=== PATIENT | female | born 1945 | race Caucasian/White ===

== ENCOUNTER → 2020-03-24 09:07 | Outpatient (BNVA) | payer MEDICARE, SELFPAY | PROVIDERS: PCP Internal Medicine; Referring Provider Internal Medicine; Visit Provider Surgery Vascular Surgery | DX: I83.12 Varicose veins of left lower extremity with inflammation (principal) | CPT/HCPCS: 36482 ==

== ENCOUNTER 2020-03-28 12:30 | Outpatient (REF) | payer MEDICARE, SELFPAY ==
--- NOTE | 2020-03-28 | US_ITS ---
EXAMINATION: LOWER EXTREMITY VENOUS ULTRASOUND, LEFT CLINICAL INFORMATION: Leg pain and swelling status post VenaSeal procedure. COMPARISON: None. TECHNIQUE: Doppler spectral analysis and color flow Doppler imaging was performed of the lower extremity. Compression and augmentation maneuvers were performed. FINDINGS: The visualized left common femoral, femoral, popliteal veins demonstrate normal compressibility and color fill-in without evidence of venous thrombosis. Visualized portions of the mid calf veins demonstrate normal color fill-in suggesting patency. Echogenicity in the left greater saphenous vein approximately 3.4 cm away from the saphenofemoral junction, suggestive of sequela of previous VenaSeal procedure. ADDITIONAL FINDINGS: None. IMPRESSION: No evidence for left lower extremity deep vein thrombosis. Echogenicity in the left greater saphenous vein approximately 3.4 cm from the saphenofemoral junction, suggestive of sequela of VenaSeal procedure.
== END 2020-03-28 12:31 | disposition home or self-care (01) ==
LOC: HO.US 12:30
PROVIDERS: Visit Provider Surgery Vascular Surgery
DX: M79.605 Pain in left leg (principal)
CPT/HCPCS: 93971

== ENCOUNTER → 2020-04-04 14:20 | Outpatient (BNVA) | payer MEDICARE, SELFPAY | PROVIDERS: PCP Internal Medicine; Visit Provider Surgery Vascular Surgery | DX: Z48.812 Encounter for surgical aftercare following surgery on the circulatory system (principal) | CPT/HCPCS: 99213 ==

== ENCOUNTER → 2020-04-27 14:48 | Outpatient (BNVA) | payer MEDICARE, SELFPAY | PROVIDERS: PCP Internal Medicine; Visit Provider Surgery Vascular Surgery | DX: Z48.812 Encounter for surgical aftercare following surgery on the circulatory system (principal) | CPT/HCPCS: 99212 ==

== ENCOUNTER 2021-01-26 12:01 | Outpatient (REF) | payer MEDICARE, SELFPAY ==
--- NOTE | ~2021-01-26 | MM_ITS ---
EXAMINATION: MM SCREENING DIGITAL BREAST TOMOSYNTHESIS, BILATERAL CLINICAL INFORMATION: Screening. Asymptomatic. The lifetime risk of breast cancer based on the Tyrer-Cuzick Model is 5%. COMPARISON: Mammography: 01/21/2020, 09/08/2018, 09/01/2017 TECHNIQUE: Digital breast tomosynthesis is performed in both the craniocaudal and mediolateral oblique views along with computer-aided detection (CAD). Synthesized 2D images are generated from the tomosynthesis. FINDINGS: The breasts are heterogeneously dense, which may obscure small masses (ACR BI-RADS breast composition Category c). There are no significant masses, abnormal calcifications, or other abnormalities. There is no developing density. The axilla and skin contours are unremarkable. Loop recorder cardiac monitoring device again noted overlying the posterior medial left breast. There is a small dermal lesion overlying the superior medial right breast. MM/MM tomosynthesis screening BI IMPRESSION: No mammographic evidence of malignancy. ASSESSMENT: BI-RADS 2: Benign RECOMMENDATION: Routine annual mammography screening. This patient's information was entered into a reminder system with a target due date for their next mammogram.
== END 2021-01-26 12:02 | disposition home or self-care (01) ==
LOC: HO.MAMMO 12:01
PROVIDERS: PCP Internal Medicine; Visit Provider Internal Medicine
DX: Z12.31 Encounter for screening mammogram for malignant neoplasm of breast (principal)
CPT/HCPCS: 77063; 77067

== ENCOUNTER 2021-02-01 11:02 | Outpatient (REF) | payer MEDICARE, SELFPAY ==
[2021-02-01 14:50] LABS: Alanine Aminotransferase 27 U/L (0-31); Anion Gap 14 (12-20); Aspartate Amino Transferase 23 U/L (5-31); Blood Urea Nitrogen 15 mg/dL (9-16); Calcium 10.6 mg/dL (8.4-10.2); Carbon Dioxide 25 mmol/L (22-29); Chloride 109 mmol/L (96-108); Cholesterol 187 mg/dL; Estimated Glomerular Filt Rate > 60; Glucose Fasting 97 mg/dL (60-99); HDL Cholesterol 47 mg/dL; LDL Cholesterol Calculated 86 mg/dl; Potassium 4.1 mmol/L (3.3-5.1); Sodium 144 mmol/L (135-145); Triglycerides 274 mg/dL
[2021-02-01 14:58] LABS: Vitamin D 25-OH Total 45.8 ng/mL (>30)
== END 2021-02-01 11:03 | disposition home or self-care (01) ==
LOC: HO.HMGCLDS 11:02
PROVIDERS: PCP Internal Medicine; Visit Provider Internal Medicine
DX: R60.0 Localized edema (principal); E83.52 Hypercalcemia; I83.893 Varicose veins of bilateral lower extremities with other complications; E78.5 Hyperlipidemia, unspecified; Z78.0 Asymptomatic menopausal state; I10 Essential (primary) hypertension
CPT/HCPCS: 36415; 80048; 80061; 82306; 84450; 84460

== ENCOUNTER 2021-02-13 12:30 | Outpatient (REF) | payer MEDICARE, SELFPAY ==
[2021-02-15 13:16] LABS: Calcium, Ionized 5.8 mg/dL (4.8-5.6)
[2021-02-15 13:31] LABS: Calcium (PTHI) 10.9 mg/dL (8.6-10.4); PTHI 62 pg/mL (14-64)
== END 2021-02-13 12:31 | disposition home or self-care (01) ==
LOC: HO.HMGCLDS 12:30
PROVIDERS: PCP Internal Medicine; Visit Provider Internal Medicine
DX: E83.52 Hypercalcemia (principal)
CPT/HCPCS: 36415; 82330; 83970

== ENCOUNTER 2021-05-28 10:16 | Outpatient (REF) | payer MEDICARE, SELFPAY | END 2021-05-28 10:17 | disposition home or self-care (01) | LOC: HO.HMGCLDS 10:16 | PROVIDERS: PCP Internal Medicine; Visit Provider Internal Medicine | DX: Z13.89 Encounter for screening for other disorder (principal) ==

== ENCOUNTER 2021-07-26 08:50 | Outpatient (REF) | payer MEDICARE, SELFPAY ==
[2021-07-26 11:55] LABS: TSH reflex Free T4 0.69 uIU/mL (0.32-4.0); Vitamin D 25-OH Total 40.9 ng/mL (>30)
[2021-07-26 12:23] LABS: Alanine Aminotransferase 27 U/L (0-31); Anion Gap 11 (12-20); Aspartate Amino Transferase 21 U/L (5-31); Blood Urea Nitrogen 16 mg/dL (9-16); Calcium 10.6 mg/dL (8.4-10.2); Carbon Dioxide 28 mmol/L (22-29); Chloride 107 mmol/L (96-108); Cholesterol 207 mg/dL; Estimated Glomerular Filt Rate 56; Glucose Fasting 97 mg/dL (60-99); HDL Cholesterol 52 mg/dL; LDL Cholesterol Calculated 113 mg/dl; Sodium 142 mmol/L (135-145); Triglycerides 211 mg/dL
== END 2021-07-26 08:51 | disposition home or self-care (01) ==
LOC: HO.HMGCLDS 08:50
PROVIDERS: Visit Provider Internal Medicine
DX: F41.9 Anxiety disorder, unspecified (principal); K21.9 Gastro-esophageal reflux disease without esophagitis; I48.0 Paroxysmal atrial fibrillation; I10 Essential (primary) hypertension; E78.5 Hyperlipidemia, unspecified; Z78.0 Asymptomatic menopausal state
CPT/HCPCS: 36415; 80048; 80061; 82306; 84443; 84450; 84460

== ENCOUNTER 2022-02-19 09:41 | Outpatient (REF) | payer MEDICARE, SELFPAY ==
[2022-02-19 11:59] LABS: Alanine Aminotransferase 20 U/L (0-31); Anion Gap 14 (12-20); Aspartate Amino Transferase 15 U/L (5-31); Blood Urea Nitrogen 20 mg/dL (9-16); Calcium 10.2 mg/dL (8.4-10.2); Carbon Dioxide 25 mmol/L (22-29); Chloride 107 mmol/L (96-108); Cholesterol 199 mg/dL; Estimated Glomerular Filt Rate > 60; Glucose Fasting 98 mg/dL (60-99); HDL Cholesterol 46 mg/dL; LDL Cholesterol Calculated 105 mg/dl; Potassium 3.7 mmol/L (3.3-5.1); Sodium 142 mmol/L (135-145); Triglycerides 241 mg/dL
[2022-02-19 12:22] LABS: TSH reflex Free T4 0.57 uIU/mL (0.32-4.0); Vitamin D 25-OH Total 43.5 ng/mL (>30)
[2022-02-21 08:33] LABS: Calcium, Ionized 5.5 mg/dL (4.8-5.6)
[2022-02-26 21:11] LABS: Parathyroid Hormone Related Pr 12 pg/mL (11-20)
== END 2022-02-19 09:42 | disposition home or self-care (01) ==
LOC: HO.HMGCLDS 09:41
PROVIDERS: PCP Internal Medicine; Visit Provider Internal Medicine
DX: E21.3 Hyperparathyroidism, unspecified (principal); E04.2 Nontoxic multinodular goiter; E78.5 Hyperlipidemia, unspecified; I10 Essential (primary) hypertension; Z78.0 Asymptomatic menopausal state
CPT/HCPCS: 36415; 80048; 80061; 82306; 82330; 83519; 84443; 84450; 84460

== ENCOUNTER 2022-03-06 12:06 | Outpatient (REF) | payer MEDICARE, SELFPAY ==
--- NOTE | ~2022-03-06 | MM_ITS ---
EXAMINATION: MM SCREENING DIGITAL BREAST TOMOSYNTHESIS, BILATERAL CLINICAL INFORMATION: Screening. Asymptomatic. The lifetime risk of breast cancer based on the Tyrer-Cuzick Model is 5%. COMPARISON: Mammography: 01/26/2021, 01/21/2020, 09/08/2018 TECHNIQUE: Digital breast tomosynthesis is performed in both the craniocaudal and mediolateral oblique views along with computer-aided detection (CAD). Synthesized 2D images are generated from the tomosynthesis. Additional right MLO view is provided. FINDINGS: The breasts are heterogeneously dense, which may obscure small masses (ACR BI-RADS breast composition Category c). Parenchymal pattern is similar to prior studies. There is no developing density or architectural abnormality. Small dermal lesion is again seen overlying the superior medial right breast. A loop recorder cardiac monitoring device again noted overlying posterior medial left breast. No significant changes. The axilla are unremarkable. MM/MM tomosynthesis screening BI IMPRESSION: No mammographic evidence of malignancy. ASSESSMENT: BI-RADS 2: Benign RECOMMENDATION: Routine annual mammography screening. This patient's information was entered into a reminder system with a target due date for their next mammogram.
== END 2022-03-06 12:07 | disposition home or self-care (01) ==
LOC: HO.MAMMO 12:06
PROVIDERS: PCP Internal Medicine; Visit Provider Internal Medicine
DX: Z12.31 Encounter for screening mammogram for malignant neoplasm of breast (principal)
CPT/HCPCS: 77063; 77067

== ENCOUNTER 2022-03-12 12:46 | Outpatient (REF) | payer MEDICARE, SELFPAY ==
--- NOTE | ~2022-03-12 | US_ITS ---
EXAMINATION: US THYROID CLINICAL INFORMATION: Nontoxic multinodular goiter. COMPARISON: Ultrasound thyroid 02/06/2018. TECHNIQUE: Linear transducer grayscale and color Doppler examination with attention to the region of the thyroid. FINDINGS: SIZE: Measurements of the thyroid lobes and nodules are given in sagittal, anteroposterior and transverse dimensions respectively. Right Thyroid Lobe: 4.6 x 2.7 x 1.7 cm, volume 10.8 mL. Previously 4.8 x 2.5 x 1.8 cm, volume 11.3 mL. Parenchyma: The gland echotexture is heterogeneous. Thyroid vascularity is normal. Left Thyroid Lobe: 5.0 x 2.5 x 2.0 cm, volume 12.5 mL. Previously 5.0 x 2.2 x 1.7 cm, volume 9.8 mL. Parenchyma: The gland echotexture is heterogeneous. Thyroid vascularity is normal. Isthmus: 0.31 cm in maximum AP dimension. Previously 0.60 cm. Estimated total number of nodules greater than or equal to 1 cm: 3. Beet Worker nodules are described as follows: 1. Location: Right mid. Size: 0.61 x 0.38 x 0.55 cm, volume 0.07 mL. Previously: 0.61 x 0.50 x 0.58 cm, volume 0.09 mL. Nodule characteristics: Composition: Spongiform (0). Echogenicity: Anechoic (0). Shape: Not taller than wide (0). Margins: Smooth (0). Echogenic Foci: None (0). ACR TI-RADS total points: 0 ACR TI-RADS category: 1 Significant change in size (>/= 20% in 2 dimensions and minimal increase of 2 mm or 50% or greater increase in volume): No Change in features: No Change in ACR TI-RADS risk category: No 2. Location: Right mid. Size: 2.9 x 2.3 x 2.5 cm, volume 8.4 mL. Previously: 2.7 x 2.2 x 1.9 cm, volume 5.9 mL. Nodule characteristics: Composition: Mixed cystic and solid (1). Echogenicity: Hypoechoic (2). Shape: Not taller than wide (0). Margins: Smooth (0). Echogenic Foci: Punctate echogenic foci (3). ACR TI-RADS total points: 6 ACR TI-RADS category: 4 Significant change in size (>/= 20% in 2 dimensions and minimal increase of 2 mm or 50% or greater increase in volume): No Change in features: No Change in ACR TI-RADS risk category: No 3. Location: Left superior. Size: 1.2 x 0.92 x 1.4 cm, volume 0.82 mL. Previously: 1.0 x 0.75 x 0.85 cm, volume 0.33 mL. Nodule characteristics: Composition: Mixed cystic and solid (1). Echogenicity: Cannot be determined (1). Shape: Not taller than wide (0). Margins: Smooth (0). Echogenic Foci: None (0). ACR TI-RADS total points: 2 ACR TI-RADS category: 2 Significant change in size (>/= 20% in 2 dimensions and minimal increase of 2 mm or 50% or greater increase in volume): Yes Change in features: No Change in ACR TI-RADS risk category: No 4. Location: Left inferior. Size: 2.4 x 2.6 x 2.1 cm, volume 6.9 mL. Previously: 3.3 x 1.9 x 1.8 cm, volume 5.9 mL. Nodule characteristics: Composition: Mixed cystic and solid (1). Echogenicity: Isoechoic (1). Shape: Taller than wide (3). Margins: Smooth (0). Echogenic Foci: None (0). ACR TI-RADS total points: 5 ACR TI-RADS category: 4 Significant change in size (>/= 20% in 2 dimensions and minimal increase of 2 mm or 50% or greater increase in volume): No Change in features: No Change in ACR TI-RADS risk category: No NODES: No lymphadenopathy is seen in the tissue surrounding the thyroid gland. US/US thyroid IMPRESSION: Multinodular thyroid. The most part these nodules are without significant change. If not previously performed, nodules #2 and #4 are appropriate for fine-needle aspiration. ACR TI-RADS RECOMMENDATION REFERENCE: Ultrasound-guided fine-needle aspiration, followup ultrasound, no further follow up. * TR1 (0 point) and TR 2 (2 points): No FNA or follow up. * TR3 (3 points): FNA if more than or equal to 2.5 cm in maximum dimension, followup ultrasound in 1, 3 and 5 years if 1.5 to 2.4 cm in maximum dimension. * TR4 (4-6 points): FNA if more than or equal to 1.5 cm in maximum dimension, followup ultrasound in 1, 2, 3 and 5 years if 1 to 1.4 cm in maximum dimension. * TR5 (more than or equal to 7 points): FNA if more than or equal to 1 cm in maximum dimension, followup ultrasound every year for 5 years if 0.5 to 0.9 cm in maximum dimension. * TR3, TR4 or TR5 nodules that are below the size threshold for followup receive no follow up.
== END 2022-03-12 12:47 | disposition home or self-care (01) ==
LOC: HO.HMGCX 12:46
PROVIDERS: PCP Internal Medicine; Visit Provider Internal Medicine
DX: E04.2 Nontoxic multinodular goiter (principal)
CPT/HCPCS: 76536

== ENCOUNTER 2022-05-24 10:35 | Outpatient (REF) | payer MEDICARE, SELFPAY ==
[2022-05-24 16:21] LABS: Anion Gap 12 (12-20); Blood Urea Nitrogen 21 mg/dL (9-16); Calcium 10.5 mg/dL (8.4-10.2); Carbon Dioxide 25 mmol/L (22-29); Chloride 108 mmol/L (96-108); Estimated Glomerular Filt Rate > 60; Glucose Random 111 mg/dL (60-115); Potassium 3.9 mmol/L (3.3-5.1); Sodium 141 mmol/L (135-145)
== END 2022-05-24 10:36 | disposition home or self-care (01) ==
LOC: HO.HMGCLDS 10:35
PROVIDERS: PCP Internal Medicine; Visit Provider Physician Assistant Medical
DX: I10 Essential (primary) hypertension (principal)
CPT/HCPCS: 36415; 80048

== ENCOUNTER 2022-06-24 10:58 | Outpatient (REF) | payer MEDICARE, SELFPAY ==
[2022-06-24 14:20] LABS: Cholesterol 209 mg/dL; HDL Cholesterol 49 mg/dL; LDL Cholesterol Calculated 108 mg/dl; Triglycerides 260 mg/dL
== END 2022-06-24 10:59 | disposition home or self-care (01) ==
LOC: HO.HMGCLDS 10:58
PROVIDERS: PCP Internal Medicine; Visit Provider Internal Medicine
DX: E78.5 Hyperlipidemia, unspecified (principal); I10 Essential (primary) hypertension
CPT/HCPCS: 36415; 80061

== ENCOUNTER 2022-10-24 10:36 | Outpatient (REF) | payer MEDICARE, SELFPAY ==
--- NOTE | ~2022-10-24 | MM_ITS ---
EXAMINATION: BONE DENSITOMETRY CLINICAL INDICATION: Hyperparathyroidism, unspecified. COMPARISON: Previous BD dated 01/21/2020 and baseline BD dated 05/02/2005, spine and left hip. TECHNIQUE: Using a [employer] DXA System (software version: 13.1) manufactured by [employer], dual-energy x-ray absorptiometry was performed of the lumbar spine, left hip and left forearm radius 33%. The images are of good technical quality. Summary results are attached. FINDINGS: AP SPINE L1-L4: Current: BMD 1.263 g/cm2, Z-score 1.9, T-score 0.7, normal, 1.3% increase from previous, 4.6% increase from baseline (<5% change is not significant). Prior: BMD 1.247 g/cm2. Baseline: BMD 1.208 g/cm2. LEFT FEMUR, NECK: Current: BMD 0.818 g/cm2, Z-score 0.1, T-score -1.6, osteopenia. Prior: BMD 0.787 g/cm2. Baseline: BMD 0.905 g/cm2. LEFT FEMUR, TOTAL: Current: BMD 0.909 g/cm2, Z-score 0.7, T-score -0.8, normal, 1.7% increase from previous, 10.1% decrease from baseline (<5% change is not significant). Prior: BMD 0.894 g/cm2. Baseline: BMD 1.011 g/cm2. LEFT FOREARM RADIUS 33%: BMD 0.890 g/cm2, Z-score 2.7, T-score 0.2, normal. IDENTIFIED RISK FACTORS: Height loss, history of fracture (adult), hyperparathyroidism, low calcium intake, menopause, recurrent falls. HISTORY OF FRACTURE: Spine. MEDICATIONS: Calcium supplements or multivitamin, vitamin D. MM/XR DEXA appendicular skeleton IMPRESSION: 1. DIAGNOSIS: Osteopenia based on the lowest T-score value of -1.6 in the femoral neck applying World Health Organization criteria. 2. 10-YEAR FRACTURE RISK PREDICTION, FRAX: Major osteoporotic fracture (clinical spine, forearm, hip or shoulder) 18.0%. Hip fracture 3.7%. 3. Treatment Recommendations: NOF guidelines recommend consideration for treatment in postmenopausal women and men age 50 and older presenting with the following: -A hip or vertebral (clinical or morphometric) fracture. -T-score less than or equal to -2.5 at the femoral neck or spine after appropriate evaluation to exclude secondary causes. -Low bone mass at the hip or spine and a 10-year fracture probability by FRAX of greater than or equal to 3% for hip fracture or greater than or equal to 20% for major osteoporotic fracture based on the [place] adapted WHO algorithm. 4. Other Recommendations: All treatment decisions require clinical judgment and consideration of individual patient factors, including patient preferences, comorbidities, previous drug use, risk factors not captured in the FRAX model (e.g. frailty, falls, vitamin D deficiency, increased bone turnover, interval significant decline in bone density) and possible under or overestimation of fracture risk by FRAX. Additional medical evaluation for secondary cause of low bone mineral density may be appropriate. FUTURE SCAN RECOMMENDATION: People with diagnosed cases of osteoporosis or at high risk for fracture should have regular bone mineral density tests. For patients eligible for Medicare, routine testing is allowed once every 2 years. The testing frequency can be increased to one year for patients who have rapidly progressing disease, those who are receiving or discontinuing medical therapy to restore bone mass, or have additional risk factors.
== END 2022-10-24 10:37 | disposition home or self-care (01) ==
LOC: HO.MAMMO 10:36
PROVIDERS: Visit Provider Internal Medicine
DX: Z13.820 Encounter for screening for osteoporosis (principal); Z78.0 Asymptomatic menopausal state; E21.3 Hyperparathyroidism, unspecified
CPT/HCPCS: 77081

== ENCOUNTER 2022-11-06 11:19 | Outpatient (AMB) | payer MEDICARE, SELFPAY ==
--- NOTE | 2022-11-06 11:50 | A.OFFPC_ITS ---
Vital Signs 11/06/22 11:57 Height 5 ft 1 in Weight 192 lb BMI 36.3 BP 134/76 Blood Pressure Location Rt brachial Position Sitting Pulse 52 Pulse Source Pulse Oximeter Pulse Oximetry (%) 94 Oxygen Delivery Method Room Air Intake Visit Reasons: Med review /4 month follow up Intake Note: Pt is here today for her 4 months f/u Allergies No Known Allergies Allergy (Mild, Verified 11/06/22 12:05) N/A Medication List - Last Reconciled 11/06/22 by Tabitha Escobar MD acetaminophen (Tylenol) 325 mg PO QID PRN cholecalciferol (vitamin D3) 25 mcg PO DAILY diphenhydramine HCl (Allergy (diphenhydramine)) 25 mg PO BEDTIME hydrochlorothiazide 12.5 mg PO QAM losartan 50 mg PO DAILY multivitamin (Daily Multi-Vitamin tablet) 1 tab PO DAILY rosuvastatin 10 mg PO DAILY sotalol 160 mg PO BID Tobacco use date assessed: 11/06/22 Fall risk assessment: No Falls in past year Last assessed Fall Risk: 11/06/22 HPI Med review /4 month follow up HPI Details 77-year-old lady with dyslipidemia, hypertension, with paroxysmal atrial fibrillation currently on sotalol, here today for follow-up. Has been feeling well with no complaints at present time. [facility] Medical History Anxiety disorder Dyslipidemia (high LDL; low HDL) GERD (gastroesophageal reflux disease) HTN (hypertension) Hyperparathyroidism Idiopathic hydrocephalus Lumbar spinal stenosis Multinodular thyroid Paroxysmal atrial fibrillation Pedal edema Postmenopausal Pruritic intertrigo Serum calcium elevated Spondylolisthesis of lumbosacral region Varicose veins of bilateral lower extremities with pain Varicose veins of both legs with edema Surgical History Hx of arthroscopic knee surgery S/P arthroscopic partial medial meniscectomy S/P cryoablation of arrhythmia Status post endovenous radiofrequency ablation (RFA) of saphenous vein Status post laser ablation of incompetent vein Family History Father CVD (cardiovascular disease) Mother No problems noted. Daughter No problems noted. Daughter No problems noted. Son No problems noted. Social History Housing: Condominium Alcohol intake: never Patient Tobacco Use Status: Never used Tobacco e-Cigarette/Vaping Use: Never Used service: No Current occupational status: retired Cognitive needs: No Hearing needs: Yes Vision needs: No Questionnaire PHQ-9 Over the last 2 weeks, how often have you been bothered by any of the following problems? 1. Little interest or pleasure in doing things: not at all 2. Feeling down, depressed, or hopeless: not at all 3. Trouble falling or staying asleep, or sleeping too much: not at all 4. Feeling tired or having little energy: not at all 5. Poor appetite or overeating: not at all 6. Feeling bad about yourself - or that you are a failure or have let yourself or your family down: not at all 7. Trouble concentrating on things, such as reading the newspaper or watching television: not at all 8. Moving or speaking so slowly that other people could have noticed. Or the opposite - being so fidgety or restless that you have been moving around a lot more than usual: not at all 9. Thoughts that you would be better off or of hurting yourself in some way: not at all Total score: 0 Depression Screening Interpretation: Negative 41639 - PHQ-9 Billing: Yes Source: Developed by Drs. Kanu Hartley, Comfort Reis, Hoang Cheek and colleagues, with an educational jim from [employer]. Thrive Questionnaire Date Thrive assessed: 08/06/21 AUDIT C Alcohol Use Questionnaire (AUDIT-C) 1. How often do you have a drink containing alcohol?: Never Total Score: 0 CARLY-7 AMB Questionnaire CARLY-7 Date CARLY - 7 assessed: 11/06/22 Feeling nervous, anxious, or on edge: 0 = Not at all Not being able to stop or control worryin = Not at all Worrying too much about different things: 0 = Not at all Trouble relaxin = Not at all Being so restless that it is hard to sit still: 0 = Not at all Becoming easily annoyed or irritable: 0 = Not at all Feeling afraid as if something awful might happen: 0 = Not at all Total CARLY-7 score (0-4 normal; 5-9 mild; 10-14 moderate; 15-21 severe): 0 Source: Developed by Drs. Kanu Hartley, Comfort Reis, Hoang Cheek and colleagues, with an educational jim from [employer]. Review of Systems Const Details: Alert oriented x3, no acute cardiorespiratory distress noted, ambulatory with normal gait Eyes Reports no additional complaints ENT Denies dizziness, Denies dry mouth, Denies disequilibrium and Denies post nasal drip Card Denies chest pain, Denies chest pain with activity, Denies lightheadedness and Denies dyspnea Resp Denies chest congestion, Denies cough and Denies dyspnea GI Denies abdominal pain, Denies change in bowel habits, Denies dyspepsia and Denies heartburn Musc Denies abnormal gait and Denies deformity Skin/Breast Denies unusual bruising Neuro Reports no additional complaints, Denies abnormal gait, Denies dizziness and Denies disequilibrium Physical exam (Primary Care) Vital Signs: Last Vital Signs Pulse 52 11/06/22 11:57 BP 134/76 11/06/22 11:57 Pulse Ox 94 11/06/22 11:57 Oxygen Delivery Method Room Air 11/06/22 11:57 BMI result Body Mass Index 36.3 Tobacco/Smoking Status: Tobacco use Status Tobacco use date assessed 11/06/22 11/06/22 11:52 Patient Tobacco Use Status Never used Tobacco 11/06/22 11:52 e-Cigarette/Vaping Use Never Used 11/06/22 11:52 Depression Screening Interpretation: Negative Thrive Assessment: Date of Thrive Assessment Date Thrive assessed 08/06/21 11/06/22 11:52 Const General: comfortable, no acute distress, alert and awake Nutritional Appearance: obese Orientation/consciousness: patient oriented x3 HENMT Mouth: Normal oral and palatal mucosa present and moist mucous membranes Neck Neck: Yes full ROM, Yes no lymphadenopathy and Yes supple Resp Effort & Inspection: normal respiratory effort and able to speak in complete sentences Auscultation: clear to auscultation bilaterally Cardio Other: S1-S2 present regular rate and rhythm GI Inspection: Yes obesity Palpation (GI): Soft to palpation, nontender and no guarding Skin Other: Erythematouis patch under breasts Neuro General: patient oriented x3, gait normal, moves all extremities, Normal light touch and pain sensation and no focal motor deficits Extrem General: Yes full ROM, Yes no joint enlargement, Yes no clubbing, cyanosis or edema and Yes normal gait Psych Appearance: grossly normal and well kempt Mental Status: mental status grossly normal Speech and movement: Normal speech and movement present Affect: normal affect Attitude: cooperative Results Reviewed Results Reviewed: RUN: 02/10/23 1546 PAGE 1 [facility] [address] [place] [id number] Geospatial Scientist: Oneal Marion M.D. Specimen Inquiry Name: Kimberlyn Ponce Age/Sex: 77/F : 1945 Unit#: [id number] Attend Dr: Tabitha Escobar MD Re06/24/22 Status: DEP REF Location: [id number] Disch: SPEC : [id number] ORAL: 06/24/22 STATUS: COMP REQ : [id number] RECD: 06/24/[address]: Tabitha Escobar MD COMP: 06/24/22 ENTERED: 06/24/[address] [facility] [address]: ORDERED: Lipid Panel Test Result Flag Reference Site Triglyceride 260 mg/dL Desirable Triglyceride: less than 150 mg/dL Borderline High Triglyceride 150-199 mg/dL High Triglyceride: 200-499 mg/dL Very High Triglyceride: greater than or equal to 5OO mg/dL Chol 209 mg/dL Desirable Cholesterol: less than 200 mg/dL Borderline High Cholesterol: 200-239 mg/dL High Cholesterol: greater than 239 mg/dL LDL Calculated 108 mg/dl Desirable LDL: less than 100 mg/dL Near Optimal/Above Optimal LDL: 110-129 mg/dL Borderline High LDL: 130-159 mg/dL High LDL: 160-189 mg/dL Very High LDL: greater than or equal to 190 mg/dL HDL 49 mg/dL Desirable HDL: greater than 40 mg/dL Note: This HDL assay may give artificially low results in patients with liver disease. Assessment and Plan Assessment & Plan (1) Pruritic intertrigo: Code(s): L30.4 - Erythema intertrigo Plan: Prescription sent for clotrimazole-betamethasone, apply sparingly to affected areas twice a day for no more than 10 days at a time. Keep areas clean and dry all the time (2) HTN (hypertension): Code(s): I10 - Essential (primary) hypertension Plan: Continue with current medication. Reinforced importance of following a low sodium diet, getting regular exercise, and lowering stress levels. (3) Dyslipidemia (high LDL; low HDL): Code(s): E78.5 - Hyperlipidemia, unspecified Plan: Reviewed recent fasting lipid profile with patient with levels within normal limits except for slightly elevated triglycerides . Continue with rosuvastatin 10 mg daily , in addition to adherence to low-cholesterol diet and regular exercise, at least 30 minutes 3 to 4 times a week. Advised patient to make healthy food choices, eat more fruits, vegetables, whole grains, wild caught fish and low-fat dairy. Limit amount of meat and fried or fatty food products, as well as processed foods and fast foods. Follow-up scheduled with repeat fasting lipid panel in 4 months. Orders: Orders Alanine Aminotransferase 4 Months I10 - Essential (primary) hypertension, E78.5 - Hyperlipidemia, unspecified Aspartate Amino Transferase 4 Months I10 - Essential (primary) hypertension, E78.5 - Hyperlipidemia, unspecified Lipid Panel 4 Months I10 - Essential (primary) hypertension, E78.5 - Hyperlipidemia, unspecified Basic Metabolic Panel Fasting 4 Months I10 - Essential (primary) hypertension Medications: New clotrimazole-betamethasone 1-0.05 % 1 appl topical BID PRN 45 grams 0RF intertrigo 10 days L30.4 - Erythema intertrigo Coding Level of Care Code Est Pt Level 3 (97981) Diagnoses Pruritic intertrigo L30.4 HTN (hypertension) I10 Dyslipidemia (high LDL; low HDL) E78.5
[2022-11-06 11:57] VITALS: BP 134/76; PULSE 52; O2SAT 94; BMI 36.3
== END 2022-11-06 12:41 | disposition home or self-care (01) ==
LOC: HO.HMGC 11:19
PROVIDERS: PCP Internal Medicine; Visit Provider Internal Medicine
DX: L30.4 Erythema intertrigo (principal); I10 Essential (primary) hypertension; E78.5 Hyperlipidemia, unspecified
CPT/HCPCS: 99213

== ENCOUNTER 2023-03-07 08:50 | Outpatient (REF) | payer MEDICARE, SELFPAY ==
[2023-03-07 12:27] LABS: Alanine Aminotransferase 21 U/L (0-31); Anion Gap 13 (12-20); Aspartate Amino Transferase 18 U/L (5-31); Blood Urea Nitrogen 15 mg/dL (9-16); Calcium 10.2 mg/dL (8.4-10.2); Carbon Dioxide 27 mmol/L (22-29); Chloride 107 mmol/L (96-108); Cholesterol 218 mg/dL (<200); Estimated Glomerular Filt Rate > 60; Glucose Fasting 94 mg/dL (60-99); HDL Cholesterol 47 mg/dL (>40); LDL Cholesterol Calculated 109 mg/dL (<100); Potassium 3.5 mmol/L (3.3-5.1); Sodium 143 mmol/L (135-145); Triglycerides 311 mg/dL (<150)
== END 2023-03-07 08:51 | disposition home or self-care (01) ==
LOC: HO.HMGCLDS 08:50
PROVIDERS: PCP Internal Medicine; Visit Provider Internal Medicine
DX: I10 Essential (primary) hypertension (principal); E78.5 Hyperlipidemia, unspecified
CPT/HCPCS: 36415; 80048; 80061; 84450; 84460

== ENCOUNTER 2023-03-10 10:29 | Outpatient (REF) | payer MEDICARE, SELFPAY | END 2023-03-10 10:30 | disposition home or self-care (01) | LOC: HO.MAMMO 10:29 | PROVIDERS: Visit Provider Internal Medicine | DX: Z12.31 Encounter for screening mammogram for malignant neoplasm of breast (principal) | CPT/HCPCS: 77063; 77067 ==

== ENCOUNTER → 2023-03-10 10:45 | Outpatient (BNV) | payer MEDICARE, SELFPAY | PROVIDERS: Visit Provider Radiology Diagnostic Radiology | DX: Z12.31 Encounter for screening mammogram for malignant neoplasm of breast (principal) | CPT/HCPCS: 77063; 77067 ==

== ENCOUNTER 2023-03-10 11:50 | Outpatient (AMB) | payer MEDICARE, SELFPAY ==
--- NOTE | 2023-03-10 12:31 | MHC.PC.OV ---
Vital Signs 03/10/23 12:40 Height 5 ft 1 in Weight 192 lb BMI 36.3 BP 130/76 Blood Pressure Location Rt brachial Position Sitting Pulse 54 Pulse Source Pulse Oximeter Pulse Oximetry (%) 98 Oxygen Delivery Method Room Air Intake Visit Reasons: PE/4m follow up lipids, htn Intake Note: patient is here today for her f/u Allergies No Known Allergies Allergy (Mild, Verified 03/10/23 12:52) N/A Medication List - Last Reconciled 03/10/23 by Tabitha Escobar MD acetaminophen (Tylenol) 325 mg PO QID PRN cholecalciferol (vitamin D3) 25 mcg PO DAILY clotrimazole-betamethasone 1-0.05 % 1 appl topical BID PRN 10 days diphenhydramine HCl (Allergy (diphenhydramine)) 25 mg PO BEDTIME hydrochlorothiazide 12.5 mg PO QAM losartan 50 mg PO DAILY multivitamin (Daily Multi-Vitamin tablet) 1 tab PO DAILY rosuvastatin 10 mg PO DAILY sotalol 160 mg PO BID Tobacco use date assessed: 03/10/23 Fall risk assessment: No Falls in past year Last assessed Fall Risk: 03/10/23 Dental Screening Dental Screen Date: 03/10/23 Did you have a dental visit in the last 12 months?: Yes Was dental information given to patient?: Patient has dentist HPI PE/4m follow up lipids, htn HPI Details 77-year-old lady with dyslipidemia, hypertension, osteopenia of left femoral neck with paroxysmal atrial fibrillation currently on sotalol, here today for her physical exam and for follow-up. She is up-to-date with her screening mammogram and bone density scan, overdue for her colonoscopy screening. She has been feeling well with no complaints at present time [facility] Medical History (Updated 03/17/23 @ 01:34 by Tabitha Escobar MD) Colon cancer screening Irregular bowel habits Pruritic intertrigo Lumbar spinal stenosis Spondylolisthesis of lumbosacral region Multinodular thyroid Hyperparathyroidism Varicose veins of bilateral lower extremities with pain Anxiety disorder GERD (gastroesophageal reflux disease) Paroxysmal atrial fibrillation Serum calcium elevated Idiopathic hydrocephalus HTN (hypertension) Postmenopausal Dyslipidemia (high LDL; low HDL) Varicose veins of both legs with edema Pedal edema Surgical History S/P cryoablation of arrhythmia S/P arthroscopic partial medial meniscectomy Hx of arthroscopic knee surgery Status post laser ablation of incompetent vein Status post endovenous radiofrequency ablation (RFA) of saphenous vein Family History Father CVD (cardiovascular disease) Mother No problems noted. Daughter No problems noted. Daughter No problems noted. Son No problems noted. Social History Housing: Condominium Alcohol intake: never Patient Tobacco Use Status: Never used Tobacco e-Cigarette/Vaping Use: Never Used service: No Current occupational status: retired Cognitive needs: No Hearing needs: Yes Vision needs: No Questionnaire PHQ-9 Over the last 2 weeks, how often have you been bothered by any of the following problems? Depression Screening Interpretation: Negative 56960 - PHQ-9 Billing: Yes Source: Developed by Drs. Kanu Hartley, Comfort Reis, Hoang Cheek and colleagues, with an educational jim from [employer]. Thrive Questionnaire Date Thrive assessed: 03/10/23 I am a: Patient What is your living situation today?: I have a steady place to live Within the past 12 months, did the food you bought not last and you didn't have the money to get more?: Never true Within the past 12 months, did you worry whether your food would run out before you got money to buy more?: Never true Do you have trouble paying for medicines?: No Do you have trouble getting transportation to medical appointments?: No Do you have trouble paying your heating and electricity bill?: No Do you have trouble taking care of your child, family member or friend?: No Do you have trouble with day-to-day activities such as bathing, preparing meals, shopping, managing finances, etc.?: No Are you currently unemployed and looking for a job?: No Are you interested in more education?: No AUDIT C Alcohol Use Questionnaire (AUDIT-C) 1. How often do you have a drink containing alcohol?: Never Total Score: 0 CARLY-7 AMB Questionnaire CARLY-7 Date CARLY - 7 assessed: 11/06/22 Source: Developed by Drs. Kanu Hartley, Comfort Reis, Hoang Cheek and colleagues, with an educational jim from [employer]. Review of Systems Const Details: Alert oriented x3, no acute cardiorespiratory distress noted, ambulatory with normal gait Eyes Reports no additional complaints ENT Denies dizziness, Denies dry mouth, Denies disequilibrium and Denies post nasal drip Card Denies chest pain, Denies chest pain with activity, Denies lightheadedness and Denies dyspnea Resp Denies chest congestion, Denies cough and Denies dyspnea GI Denies abdominal pain, Denies melena, Denies hematochezia, Reports change in bowel habits (Has been having intermittent episodes of alternating diarrhea and constipat), Denies dyspepsia and Denies heartburn Reports no additional complaints Musc Denies abnormal gait and Denies deformity Skin/Breast Reports as per HPI and Denies unusual bruising Neuro Reports no additional complaints, Denies abnormal gait, Denies dizziness and Denies disequilibrium Psych Reports no additional complaints Endo Reports no additional complaints Immanuel/Lymph Reports no additional complaints Aller/Immun Reports no additional complaints Physical exam (Primary Care) Vital Signs: Last Vital Signs Pulse 54 03/10/23 12:40 BP 130/76 03/10/23 12:40 Pulse Ox 98 03/10/23 12:40 Oxygen Delivery Method Room Air 03/10/23 12:40 BMI result Body Mass Index 36.3 Tobacco/Smoking Status: Tobacco use Status Tobacco use date assessed 03/10/23 03/10/23 12:46 Patient Tobacco Use Status Never used Tobacco 03/10/23 12:31 e-Cigarette/Vaping Use Never Used 03/10/23 12:31 Depression Screening Interpretation: Negative Thrive Assessment: Date of Thrive Assessment Date Thrive assessed 03/10/23 03/10/23 12:49 Const General: comfortable, no acute distress, alert and awake Nutritional Appearance: obese Orientation/consciousness: patient oriented x3 HENMT Mouth: Normal oral and palatal mucosa present and moist mucous membranes Eyes General: appearance normal, both eyes and all related structures Neck Neck: Yes full ROM, Yes no lymphadenopathy and Yes supple Chest Breast/axilla palpation: normal palpation of the breasts Resp Effort & Inspection: normal respiratory effort and able to speak in complete sentences Auscultation: clear to auscultation bilaterally Cardio Other: S1-S2 present regular rate and rhythm GI Inspection: Yes obesity Palpation (GI): Soft to palpation, nontender and no guarding General: Yes no CVA tenderness Back/Spine/Pelvis Back: no CVA tenderness and No back tenderness Skin Other: Erythematouis patch under breasts Neuro General: patient oriented x3, gait normal, moves all extremities, Normal light touch and pain sensation and no focal motor deficits Extrem General: Yes full ROM, Yes no joint enlargement, Yes no clubbing, cyanosis or edema and Yes normal gait Psych Appearance: grossly normal and well kempt Mental Status: mental status grossly normal Speech and movement: Normal speech and movement present Affect: normal affect Attitude: cooperative Results Reviewed Results Reviewed: NTERED: 03/07/23 JOEY SHOEMAKER: ORDERED: Met Prof Fast, AST, ALT, Lipid Panel Test Result Flag Reference Site Sodium 143 135-145 mmol/L Potassium 3.5 3.3-5.1 mmol/L CL 107 96-108 mmol/L CO2 27 22-29 mmol/L Gap 13 12-20 BUN 15 9-16 mg/dL Creat 0.86 0.5-1.4 mg/dL EGFR > 60 NOTE: For -[place] individuals, multiply the result by 1.210. Chronic Kidney Disease: Estimated GFR < 60 mL/min/1.73m2 Severe Kidney Disease: Estimated GFR < 15 mL/min/1.73m2 FBS 94 60-99 mg/dL CA 10.2 8.4-10.2 mg/dL AST (GOT) 18 5-31 U/L ALT (GPT) 21 0-31 U/L Triglyceride 311 H <150 mg/dL Desirable Triglyceride: less than 150 mg/dL Borderline High Triglyceride 150-199 mg/dL High Triglyceride: 200-499 mg/dL Very High Triglyceride: greater than or equal to 5OO mg/dL Cholesterol 218 H <200 mg/dL Desirable Cholesterol: less than 200 mg/dL Borderline High Cholesterol: 200-239 mg/dL High Cholesterol: greater than 239 mg/dL LDL Calculated 109 H <100 mg/dL Desirable LDL: less than 100 mg/dL Near Optimal/Above Optimal LDL: 110-129 mg/dL Borderline High LDL: 130-159 mg/dL High LDL: 160-189 mg/dL Very High LDL: greater than or equal to 190 mg/dL HDL 47 >40 mg/dL Desirable HDL: greater than 40 mg/dL Assessment and Plan Assessment & Plan (1) Annual visit for general adult medical examination with abnormal findings: Code(s): Z00.01 - Encounter for general adult medical examination with abnormal findings Plan: Reviewed recent fasting lab results, Recommended dental visit every 6 months and regular eye exams, at least every 2 years. Take adequate calcium in diet and vitamin-D 3 at 2000 IU per cap once a day, in addition to weight-bearing exercises to help maintain good muscle tone and weight control. Instructed to do self-breast exam, and continue to get yearly mammogram, up-to-date with her bone density scan, showing presence of mild osteopenia left femoral neck.. Referred for screening colonoscopy. Reminded to get her COVID booster and her yearly flu shot, up-to-date with her pneumonia vaccination and recommended to get her shingles vaccination and tetanus booster (2) Dyslipidemia (high LDL; low HDL): Code(s): E78.5 - Hyperlipidemia, unspecified Plan: Fasting lipid panel results reviewed, will continue on current dose of rosuvastatin 10 mg daily (3) HTN (hypertension): Code(s): I10 - Essential (primary) hypertension Qualifiers: Hypertension type: primary hypertension Qualified Code(s): I10 - Essential (primary) hypertension Plan: Blood pressure at goal of less than 130/80. Continue with current medication. Reinforced importance of following a low sodium diet, getting regular exercise, and lowering stress levels. (4) Erythema intertrigo: Code(s): L30.4 - Erythema intertrigo Plan: Refill prescription sent for clotrimazole-betamethasone cream to apply sparingly to affected areas no more than 10 days at a time (5) Irregular bowel habits: Code(s): R19.8 - Other specified symptoms and signs involving the digestive system and abdomen Plan: GI consult obtained (6) Colon cancer screening: Code(s): Z12.11 - Encounter for screening for malignant neoplasm of colon Plan: Referred to GI for colonoscopy screening (7) Paroxysmal atrial fibrillation: Code(s): I48.0 - Paroxysmal atrial fibrillation Plan: Consult on followed by cardiology (8) Lumbar spinal stenosis: Code(s): M48.061 - Spinal stenosis, lumbar region without neurogenic claudication Qualifiers: Neurogenic claudication status: without neurogenic claudication Qualified Code(s): M48.061 - Spinal stenosis, lumbar region without neurogenic claudication Plan: Takes Tylenol as needed Orders: Orders Lipid Panel 6 Months E78.5 - Hyperlipidemia, unspecified, I10 - Essential (primary) hypertension Alanine Aminotransferase 6 Months E78.5 - Hyperlipidemia, unspecified, I10 - Essential (primary) hypertension Aspartate Amino Transferase 6 Months E78.5 - Hyperlipidemia, unspecified, I10 - Essential (primary) hypertension Basic Metabolic Panel Fasting 6 Months E78.5 - Hyperlipidemia, unspecified, I10 - Essential (primary) hypertension Referrals Gastroenterology Referral R19.8 - Other specified symptoms and signs involving the digestive system and abdomen, Z12.11 - Encounter for screening for malignant neoplasm of colon Medications: Refilled clotrimazole-betamethasone 1-0.05 % 1 appl topical BID 10 days PRN 45 grams 0RF intertrigo L30.4 - Erythema intertrigo Coding Level of Care Code Est Pt Prev Care >65y(97859) Diagnoses Annual visit for general adult medical examination with abnormal findings Z00.01 Dyslipidemia (high LDL; low HDL) E78.5 Primary hypertension I10 Hypertension type: primary hypertension Erythema intertrigo L30.4 Irregular bowel habits R19.8 Colon cancer screening Z12.11 Paroxysmal atrial fibrillation I48.0 Spinal stenosis of lumbar region without neurogenic claudication M48.061 Neurogenic claudication status: without neurogenic claudication
[2023-03-10 12:40] VITALS: BP 130/76; PULSE 54; O2SAT 98; BMI 36.3
== END 2023-03-10 13:19 | disposition home or self-care (01) ==
PROVIDERS: Visit Provider Internal Medicine
DX: Z00.00 Encounter for general adult medical examination without abnormal findings (principal); I48.0 Paroxysmal atrial fibrillation; E78.5 Hyperlipidemia, unspecified; I10 Essential (primary) hypertension; L30.4 Erythema intertrigo; R19.8 Other specified symptoms and signs involving the digestive system and abdomen; Z12.11 Encounter for screening for malignant neoplasm of colon; M48.061 Spinal stenosis, lumbar region without neurogenic claudication
CPT/HCPCS: 99397

== ENCOUNTER 2023-09-04 09:34 | Outpatient (REF) | payer MEDICARE, SELFPAY ==
[2023-09-04 11:56] LABS: Alanine Aminotransferase 17 U/L (0-31); Anion Gap 12 (12-20); Aspartate Amino Transferase 14 U/L (5-31); Blood Urea Nitrogen 17 mg/dL (9-16); Calcium 10.6 mg/dL (8.4-10.2); Carbon Dioxide 28 mmol/L (22-29); Chloride 107 mmol/L (96-108); Cholesterol 189 mg/dL (<200); Estimated Glomerular Filt Rate > 60; Glucose Fasting 93 mg/dL (60-99); HDL Cholesterol 49 mg/dL (>40); LDL Cholesterol Calculated 86 mg/dL (<100); Potassium 3.4 mmol/L (3.3-5.1); Sodium 144 mmol/L (135-145); Triglycerides 272 mg/dL (<150)
== END 2023-09-04 09:35 | disposition home or self-care (01) ==
LOC: HO.HMGCLDS 09:34
PROVIDERS: PCP Internal Medicine; Visit Provider Internal Medicine
DX: I10 Essential (primary) hypertension (principal); E78.5 Hyperlipidemia, unspecified
CPT/HCPCS: 36415; 80048; 80061; 84450; 84460

== ENCOUNTER 2023-09-10 11:25 | Outpatient (AMB) | payer MEDICARE, SELFPAY ==
[2023-09-10 11:57] VITALS: BP 130/64; PULSE 52; O2SAT 96; BMI 35.9
--- NOTE | 2023-09-10 11:57 | A.OFFPC_ITS ---
Vital Signs 09/10/23 11:57 Height 5 ft 1 in Weight 190 lb BMI 35.9 BP 130/64 Blood Pressure Location Lt brachial Position Sitting Pulse 52 Pulse Source Pulse Oximeter Pulse Oximetry (%) 96 Oxygen Delivery Method Room Air Intake Visit Reasons: 6 month fu Intake Note: Pt is here today for his 6 mo. f/u Allergies No Known Allergies Allergy (Mild, Verified 09/10/23 12:12) N/A Medication List - Last Reconciled 09/10/23 by Tabitha Escobar MD acetaminophen (Tylenol) 325 mg PO QID PRN clotrimazole-betamethasone 1-0.05 % 1 appl topical BID PRN 10 days diphenhydramine HCl (Sleep Aid (diphenhydramine)) 50 mg PO BEDTIME hydrochlorothiazide 12.5 mg PO QAM losartan 50 mg PO DAILY multivitamin (Daily Multi-Vitamin tablet) 1 tab PO DAILY rosuvastatin 10 mg PO DAILY sotalol 160 mg PO BID Tobacco use date assessed: 09/10/23 Fall risk assessment: 1 Fall in past year Last assessed Fall Risk: 09/10/23 Dental Screening Dental Screen Date: 09/10/23 Did you have a dental visit in the last 12 months?: Yes Did you have a dental problem in the last 6 months where you did not have access to dental care?: Yes Was dental information given to patient?: Patient has dentist HPI 6 month fu HPI Details 78-year-old lady with hypertension and h yperlipidemia, here today for her follow-up. She has been feeling well, compliant with taking her medications. She has paroxysmal atrial fibrillation currently on sotalol, followed by cardiology [facility] Medical History Colon cancer screening Irregular bowel habits Pruritic intertrigo Lumbar spinal stenosis Spondylolisthesis of lumbosacral region Multinodular thyroid Hyperparathyroidism Varicose veins of bilateral lower extremities with pain Anxiety disorder GERD (gastroesophageal reflux disease) Paroxysmal atrial fibrillation Serum calcium elevated Idiopathic hydrocephalus HTN (hypertension) Postmenopausal Dyslipidemia (high LDL; low HDL) Varicose veins of both legs with edema Pedal edema Surgical History S/P cryoablation of arrhythmia S/P arthroscopic partial medial meniscectomy Hx of arthroscopic knee surgery Status post laser ablation of incompetent vein Status post endovenous radiofrequency ablation (RFA) of saphenous vein Family History Father CVD (cardiovascular disease) Mother No problems noted. Daughter No problems noted. Daughter No problems noted. Son No problems noted. Social History Housing: Condominium Alcohol intake: never Patient Tobacco Use Status: Never used Tobacco e-Cigarette/Vaping Use: Never Used service: No Current occupational status: retired Cognitive needs: No Hearing needs: Yes Vision needs: No Questionnaire PHQ-9 Over the last 2 weeks, how often have you been bothered by any of the following problems? 1. Little interest or pleasure in doing things: not at all 2. Feeling down, depressed, or hopeless: not at all 3. Trouble falling or staying asleep, or sleeping too much: several days 4. Feeling tired or having little energy: several days 5. Poor appetite or overeating: not at all 6. Feeling bad about yourself - or that you are a failure or have let yourself or your family down: not at all 7. Trouble concentrating on things, such as reading the newspaper or watching television: not at all 8. Moving or speaking so slowly that other people could have noticed. Or the opposite - being so fidgety or restless that you have been moving around a lot more than usual: not at all 9. Thoughts that you would be better off or of hurting yourself in some way: not at all Total score: 2 Depression Screening Interpretation: Negative Depression Screening Done: Yes 94200 - PHQ-9 Billing: Yes Source: Developed by Drs. Kanu Hartley, Comfort Reis, Hoang Cheek and colleagues, with an educational jim from [employer]. Thrive Questionnaire Date Thrive assessed: 09/10/23 I am a: Patient What is your living situation today?: I have a steady place to live Within the past 12 months, did the food you bought not last and you didn't have the money to get more?: Never true Within the past 12 months, did you worry whether your food would run out before you got money to buy more?: Never true Do you have trouble paying for medicines?: No Do you have trouble getting transportation to medical appointments?: No Do you have trouble paying your heating and electricity bill?: No Do you have trouble taking care of your child, family member or friend?: No Do you have trouble with day-to-day activities such as bathing, preparing meals, shopping, managing finances, etc.?: No Are you currently unemployed and looking for a job?: No Are you interested in more education?: No THRIVE Score: 0 AUDIT C Alcohol Use Questionnaire (AUDIT-C) 1. How often do you have a drink containing alcohol?: Never Total Score: 0 CARLY-7 AMB Questionnaire CARLY-7 Date CARLY - 7 assessed: 09/10/23 Feeling nervous, anxious, or on edge: 1 = Several days Not being able to stop or control worryin = Several days Worrying too much about different things: 1 = Several days Trouble relaxin = Not at all Being so restless that it is hard to sit still: 0 = Not at all Becoming easily annoyed or irritable: 0 = Not at all Feeling afraid as if something awful might happen: 0 = Not at all Total CARLY-7 score (0-4 normal; 5-9 mild; 10-14 moderate; 15-21 severe): 3 Source: Developed by Drs. Kanu Hartley, Comfort Reis, Hoang Cheek and colleagues, with an educational jim from [employer]. CARLY-7 Assessment Billing CARLY-7 Assessment Tool: CARLY-7 Assessment 48143 Review of Systems Const Details: Alert oriented x3, no acute cardiorespiratory distress noted, ambulatory with normal gait Eyes Reports no additional complaints Card Denies chest pain, Denies chest pain with activity, Denies lightheadedness and Denies dyspnea Resp Denies chest congestion, Denies cough and Denies dyspnea GI Denies abdominal pain, Denies melena, Denies hematochezia, Denies dyspepsia and Denies heartburn Reports no additional complaints Musc Denies deformity Skin/Breast Denies unusual bruising Neuro Reports no additional complaints Psych Reports no additional complaints Endo Reports no additional complaints Immanuel/Lymph Reports no additional complaints Aller/Immun Reports no additional complaints Physical exam (Primary Care) Vital Signs: Last Vital Signs Pulse 52 09/10/23 11:57 BP 130/64 09/10/23 11:57 Pulse Ox 96 09/10/23 11:57 Oxygen Delivery Method Room Air 09/10/23 11:57 BMI result Body Mass Index 35.9 Tobacco/Smoking Status: Tobacco use Status Tobacco use date assessed 09/10/23 09/10/23 11:59 Patient Tobacco Use Status Never used Tobacco 09/10/23 11:57 e-Cigarette/Vaping Use Never Used 09/10/23 11:57 PHQ-9: PHQ-9 Score PHQ-9: Total score 2 09/10/23 23:51 Depression Screening Interpretation: Negative Thrive Assessment: Date of Thrive Assessment Date Thrive assessed 09/10/23 09/10/23 12:40 Const General: comfortable, no acute distress, alert and awake Nutritional Appearance: obese Orientation/consciousness: patient oriented x3 HENMT Mouth: Normal oral and palatal mucosa present and moist mucous membranes Eyes General: appearance normal, both eyes and all related structures Neck Neck: Yes full ROM, Yes no lymphadenopathy and Yes supple Chest Breast/axilla palpation: normal palpation of the breasts Resp Effort & Inspection: normal respiratory effort and able to speak in complete sentences Auscultation: clear to auscultation bilaterally Cardio Other: S1-S2 present regular rate and rhythm GI Inspection: Yes obesity Palpation (GI): Soft to palpation, nontender and no guarding General: Yes no CVA tenderness Back/Spine/Pelvis Back: no CVA tenderness and No back tenderness Neuro General: patient oriented x3, gait normal, moves all extremities, Normal light touch and pain sensation and no focal motor deficits Extrem General: Yes full ROM, Yes no joint enlargement, Yes no clubbing, cyanosis or edema and Yes normal gait Psych Appearance: grossly normal and well kempt Mental Status: mental status grossly normal Speech and movement: Normal speech and movement present Affect: normal affect Attitude: cooperative Results Reviewed Results Reviewed: Name: Kimberlyn Ponce Age/Sex: 78/F : 1945 Unit#: [id number] Attend Dr: Tabitha Escobar MD Re09/04/23 Status: DEP REF Location: [facility] Disch: SPEC : [id number] ORAL: 09/04/23 STATUS: COMP REQ : [id number] RECD: 09/04/23 [facility] DR: Tabitha Escobar MD COMP: 09/04/23 ENTERED: 09/04/23 [facility] DR: ORDERED: Met Prof Fast, AST, ALT, Lipid Panel Test Result Flag Reference Sodium 144 135-145 mmol/L Potassium 3.4 3.3-5.1 mmol/L CL 107 96-108 mmol/L CO2 28 22-29 mmol/L Gap 12 12-20 BUN 17 H 9-16 mg/dL Creat 0.80 0.5-1.4 mg/dL EGFR > 60 NOTE: For -[place] individuals, multiply the result by 1.210. Chronic Kidney Disease: Estimated GFR < 60 mL/min/1.73m2 Severe Kidney Disease: Estimated GFR < 15 mL/min/1.73m2 FBS 93 60-99 mg/dL CA 10.6 H 8.4-10.2 mg/dL AST (GOT) 14 5-31 U/L ALT (GPT) 17 0-31 U/L Triglyceride 272 H <150 mg/dL Desirable Triglyceride: less than 150 mg/dL Borderline High Triglyceride 150-199 mg/dL High Triglyceride: 200-499 mg/dL Very High Triglyceride: greater than or equal to 5OO mg/dL Cholesterol 189 <200 mg/dL Desirable Cholesterol: less than 200 mg/dL Borderline High Cholesterol: 200-239 mg/dL High Cholesterol: greater than 239 mg/dL LDL Calculated 86 <100 mg/dL Desirable LDL: less than 100 mg/dL Near Optimal/Above Optimal LDL: 110-129 mg/dL Borderline High LDL: 130-159 mg/dL High LDL: 160-189 mg/dL Very High LDL: greater than or equal to 190 mg/dL HDL 49 >40 mg/dL Desirable HDL: greater than 40 mg/dL Note: This HDL assay may give artificially low results in patients with liver disease. Assessment and Plan Assessment & Plan (1) HTN (hypertension): Code(s): I10 - Essential (primary) hypertension Qualifiers: Hypertension type: primary hypertension Qualified Code(s): I10 - Essential (primary) hypertension Plan: Blood pressure at goal of less than 130/80. Continue losartan and hydrochlorothiazide the same dose Reinforced importance of following a low sodium diet, getting regular exercise, and lowering stress levels. (2) Dyslipidemia (high LDL; low HDL): Code(s): E78.5 - Hyperlipidemia, unspecified Plan: Fasting lipids showed elevated triglycerides but her LDL cholesterol and HDL are within normal limits. Will continue on rosuvastatin 10 mg once a day Orders: Orders Alanine Aminotransferase 03/16/24 E78.5 - Hyperlipidemia, unspecified, I10 - Essential (primary) hypertension Lipid Panel 03/16/24 E78.5 - Hyperlipidemia, unspecified, I10 - Essential (primary) hypertension Aspartate Amino Transferase 03/16/24 E78.5 - Hyperlipidemia, unspecified, I10 - Essential (primary) hypertension Coding Level of Care Code Est Pt Level 4 (40604) Diagnoses Primary hypertension I10 Hypertension type: primary hypertension Dyslipidemia (high LDL; low HDL) E78.5 Additional Codes CARLY-7 Assessment Billing - CARLY-7 Assessment Tool: CARLY-7 Assessment [id number] ([id number])
== END 2023-09-10 13:52 | disposition home or self-care (01) ==
PROVIDERS: PCP Internal Medicine; Visit Provider Internal Medicine
DX: I10 Essential (primary) hypertension (principal); E78.5 Hyperlipidemia, unspecified
CPT/HCPCS: 99214

== ENCOUNTER 2024-03-16 10:51 | Outpatient (REF) | payer MEDICARE, SELFPAY ==
--- NOTE | ~2024-03-16 | MM_ITS ---
EXAMINATION: MM SCREENING DIGITAL BREAST TOMOSYNTHESIS, BILATERAL CLINICAL INFORMATION: Screening. Asymptomatic. COMPARISON: Mammography: Comparison is made with available priors TECHNIQUE: Digital breast mammography with tomosynthesis is performed in both the craniocaudal and mediolateral oblique views along with computer-aided detection (CAD). FINDINGS: The breasts are heterogeneously dense, which may obscure small masses (ACR BI-RADS breast composition Category c). Cardiac device overlies and obscures the upper inner left breast posterior depth. There are no significant masses, abnormal calcifications, or other abnormalities. MM/MM tomosynthesis screening BI IMPRESSION: No mammographic evidence of malignancy. ASSESSMENT: BI-RADS BI-RADS 2 - Benign Findings RECOMMENDATION: Routine annual mammography screening. 1 year F/U This examination should not preclude the clinical evaluation of a suspicious palpable abnormality. This patient's information was entered into a reminder system with a target due date for their next mammogram. Electronically signed by: Graciela Montenegro DO 03/26/2024 09:04 AM NATALIIA
== END 2024-03-16 10:52 | disposition home or self-care (01) ==
LOC: HO.MAMMO 10:51
PROVIDERS: PCP Internal Medicine; Visit Provider Internal Medicine
DX: Z12.31 Encounter for screening mammogram for malignant neoplasm of breast (principal)
CPT/HCPCS: 77063; 77067

== ENCOUNTER → 2024-03-16 11:00 | Outpatient (BNV) | payer MEDICARE, SELFPAY | PROVIDERS: PCP Internal Medicine; Visit Provider Internal Medicine | DX: Z12.31 Encounter for screening mammogram for malignant neoplasm of breast (principal) | CPT/HCPCS: 77063; 77067 ==

== ENCOUNTER 2025-03-18 10:43 | Outpatient (REF) | payer MEDICARE, SELFPAY ==
--- OUTSIDE RECORDS SUMMARY | 2024-06-21 09:30 | XMS_ITS ---
Author Organization [facility] Address [address] [place] [address] Care Team Providers Care Vocational Training Instructor Name Role Phone Shawn DOE, Tabitha De Luna Primary Care Provider Un available Black, Dionna Unavailable [phone] Encounters Encounter Location Date Provider Diagnosis [facility] [address] [place] [address] 06/21/2024 Dionnatodd Wood Plan Of Treatment No Information Progress Notes * Kimberlyn BENÍTEZ MDOB:1945 (79 yo F)Acc No.[id number]:06/21/2024 Progress Note Patient: Kimberlyn GREEN Provider: Stephanie Wood DPM :1945 A ge:79 Y S ex:Female Date:06/21/2024 Address:[facility] [address] [place], [place] [id number] Pcp:Demarco Benítez Subjective: * Chief Complaints: * * Medical History: Objective: * Vitals: Assessment: Plan: * Treatment: * Images: * The named appointment provid er may or may not be the originator of this progress note, and it is not deemed complete until electronically signed by the appointment provider. Sign off status: Pending * Provider: Stephanie Wood DPM Date: 0 06/21/2024 Generated for Yas bro/Esther/eTransmitting on: 1 11:44 AM EDT
--- OUTSIDE RECORDS SUMMARY | 2025-03-18 11:44 | XMS_ITS | Patient Health Record ---
Author Organization [facility] Address [address] [place] [address] Care Team Providers Care Manager Rental Name Role Phone Shawn DOE, Tabitha De Luna Primary Care Provider Un available Black, Dionna Unavailable [phone] Allergies No Known Allergies Reason For Referral No Information Medications Medication SIG (Take, Route, Frequency, Duration) Notes Start Date End Date Status Metoprolol & Diet Manage Prod Unknown One Daily For Women - as directed Orally Active Lamisil 250 250 MG 1 Tab Oral Daily; Duration: 90 09/22/2014 Unknown Rosuvastatin Calcium 10 MG 1 tablet Oral ly Once a day; Duration: 30 day(s) Active Compression Stockings 20-30mm Hg 1 pair wear daily; Duration: 30 days Active Sotalol HCl 80 MG as directed Orally Active zzzCompression Stockings 20-30mm Hg . . .; Duration: . Active Compression Stockings 20-30mm Hg 1 pair wear daily; Duration: 30 days Active Vitamin D3 50 MCG (1999 UT) 1 tablet Orally Once a day Not-Taking Fluticasone Propionate Unknown Acetaminophen 500 MG 1 capsule as needed Orally every 6 hrs as needed Active Pravachol Unknown diphenhydrAMINE HCl 50 MG 1 tablet at bedtime as needed Orally Active Warfarin Sodium Unkn own hydroCHLOROthiazide 12.5 MG 1 tablet in the morning Orally Once a day; Duration: 30 day(s) Active SEROquel Unknown Losartan Potassium 50 MG 1 tablet Orally Once a day; Duration: 30 day(s) 0.5 tablet Active Immunizations Vaccine Route Administration Date Status Comme nts COVID-19 Pfizer BioNTech Vaccine Unknown 08/19/2020 Administered 1st 07/29/2020 Social History Tobacco Use: Social History Observation Description Date Details (start date - stop date) Never Smoker NA - NA Tobacco Use/Smoking Question Answer Notes Are you a: nonsmoker Alcohol Screen Question Answer Notes Did you have a drink containing alcohol in the p ast year? No Points 0 Interpretation Negative Tobacco use other than smoking: Question Answer Notes Are you an other tobacco user? No Section Notes: Patient vaccines: Flu Shot (2019); Shingles Shot (08/2012); Last Cortizone Shot, shoulder (03/2020); COVID-19 Vaccine, Pzifer (07/2020, 08/2020) Patient vaccines: Flu Shot (2019); Shingles Shot (08/2012); Last Cortizone Shot, shoulder (03/2020); COVID-19 Vaccine, Pzifer (07/2020, 08/2020) Patient vaccines: Flu Shot (2019); Shingles Shot (08/2012); Last Cortizone Shot, shoulder (03/2020); COVID-19 Vaccine, Pzifer (07/2020, 08/2020) Patient vaccines: Flu Shot (2019); Shingles Shot (08/2012); Last Cortizone Shot, shoulder (03/2020); COVID-19 Vaccine, Pzifer (07/2020, 08/2020) Patient vaccines: Flu Shot (2019); Shingles Shot (08/2012); Last Cortizone Shot, shoulder (03/2020); COVID-19 Vaccine, Pzifer (07/2020, 08/2020) Problems Problem Type SNOMED Code ICD Code Onset Dates Problem Status W/U Status Risk Notes Problem Acquired hammer toe of right foot (8021346551193711) Other hammer toe(s) (acquired), right foot (M20.41) Active confirmed Problem Acquired hammer toe of left foot (7795150635114643) Other hammer toe(s) (acquired), left foot (M20.42) Active confirmed Problem Neuropathy (872384579) Neuropathy (G62.9) Active confirmed Problem Peripheral venous insufficiency (99303139) Venous insufficiency of both lower extremities (I87.2) Active confirmed Problem Localized, primary osteoarthritis of the ankle and/or foot (691537024) Arthritis of joint of lesser toe, left (M19.072) Active confirmed Problem Localized, primary osteoarthritis of the ankle and/or foot (139273092) Arthritis of joint of lesser toe, right (M19.071) Active confirmed Encounters Encounter Location Date Provider Diagnosis [facility] [address] [place] [address] 06/17/2024 Dionna Israel Plan Of Treatment Pending Test Test Name Order Date *Liver Function Test (LFT) 09/14/2014 [id number] NAIL, 6 OR MORE 09/14/2014 [id number] NAIL, 1-5 10/20/2023 [id number] NAIL, -02/02/2024 [id number] NAIL, -11/28/2014 [id number] NAIL, -02/01/2021 [id number] Plate 03/20/2023 Insurance Providers Payer Name Payer Address Payer Phone Subscriber Number Group Number Insured Name Patient Relationship to Insured Coverage Start Date Coverage End Date [employer] 65 Medicare Preferred [address] [place] [address] [id number] Kimberlyn Ponce Self - patient is the insured Medical (General) History Medical History History ICD Code Hyperlipidemia Gerton palsy Arthritis osteoarthritis Carpal tunnel Hypertension Back,Hip,and Knee pain CAD (Cholesterol) Cataracts Heart disease Sciatica thyroid Measles Surgical History Surgery Date(Month/Year) scope R&L knees 08/24/2015,09/23/2008 spinal stenosis 07/01/2008 benign cyst spine 08/03/2009 cranial shunt 02/17/2010 cather abulation 12/03/2014,11/2015 laser treatment, bilateral heels 08/2006 euflexa 2016 left knee scope 08/25/2014 thyroid modules 03/2015 TBI 2018 catarac lazer surgery, right eye 01/2018 catarac lazer surgery, left eye 02/2018 knee replacement, left 04/2016 ILP loop recorder implant 01/2019 varicose vein closure, left leg 03/2019 varicose vein closure, right leg 04/2019 varicose vein closure, left calf 02/2020 Hospitalization History Reason Date(Month/Year) CAT scan - Dr. Santana 06/25/2020 mild hyperpara thyroidism, blood work ok ay - Dr. Crowley 06/2020 mild hyperpara thyroidism 09/2019 snoring guard - Dr. Berry 06/2017 severe concussion, a fib, 2 fractures in spine, bleeding of brain 2014
--- OUTSIDE RECORDS SUMMARY | 2025-03-18 11:44 | XMS_ITS | Patient Health Record ---
Author Organization [facility] Address [address] [place] [address] Care Team Providers Care Community Service Technician Name Role Phone Shawn DOE, Tabitha Primary Care Provider Miles Swan Jr Unavailable Reason For Referral No Information Medications Medication SIG (Take, Route, Fr equency, Duration) Notes Start Date End Date Status Dicyclomine HCl 06/16/2024 06/16/2024 Ac tive Atenolol Active Pravastatin Sodium A ctive Multivitamins Active Aspir-81 Active MoviPrep 100 GM as directed begfore colonoscopy Orally for 1 dose 06/26/2011 06/16/2024 Active Vitamin D3 Active ALPRAZolam Active Problems Problem Type SNOMED Code ICD Code Onset Dates Problem Status W/U Status Risk Notes Problem Irritable bowel syndrome (95285831) Irritable bowel syndrome (564.1) Active confirmed Problem History of polyp of colon (situation) (946329822) Personal history of colonic polyps (V12.72) Active confirmed Plan Of Treatment Future Test Test Name Order Date COLONOSCOPY 06/26/2011 Insurance Providers Payer Name Payer Address Payer Phone Subscriber Number Group Number Insured Name Patient Relationship to Insured Coverage Start Date Coverage End Date [facility] [address] [place], [place] [phone] [id number] TITO BENÍTEZ Self - patient is the insured Medical (General) History Medical History History ICD Code tachycardia elevated cholesterol anxiety irritable bowel syndrome spinal stenosis Surgical History Surgery Date(Month/Year) lumbar fusion hydrocephalus with shunt placement
== END 2025-03-18 10:44 | disposition home or self-care (01) ==
LOC: HO.MAMMO 10:43
PROVIDERS: PCP Nurse Practitioner Family; Visit Provider Internal Medicine
DX: Z12.31 Encounter for screening mammogram for malignant neoplasm of breast (principal)
CPT/HCPCS: 77063; 77067

== ENCOUNTER → 2025-03-18 11:00 | Outpatient (BNV) | payer MEDICARE, SELFPAY | PROVIDERS: PCP Nurse Practitioner Family; Visit Provider Internal Medicine | DX: Z12.31 Encounter for screening mammogram for malignant neoplasm of breast (principal) | CPT/HCPCS: 77063; 77067 ==